=== PATIENT | female | born 1960 | race Caucasian/White ===

== ENCOUNTER 2020-05-30 10:43 | Observation (INO) | payer OTHER, SELFPAY ==
[2020-05-30] VITALS (11 sets, daily range): BP systolic 109–137; BP diastolic 68–88; PULSE 96–118; RESP 17–22; TEMP 36.5–36.8; O2SAT 90–100; BMI 31.5; BMI 31.4
--- NOTE | 2020-05-30 10:53 | ECG_ITS ---
APPROVED REPORT Exam: Resting ECG HR:108 bpm ECG Measurements Heart Rate 108 AXES AR 132 P 83 QRSd 70 QRS 68 QT 322 T 49 QTc 431 <Conclusion> Sinus tachycardia Biatrial enlargement Nonspecific ST abnormality Abnormal ECG Electronically signed by : Shekhar Valentino, 06/01/2020 21:17:18
--- NOTE | 2020-05-30 10:57 | HMH.EDGENADL ---
ED Disposition Clinical Impression: COPD exacerbation Respiratory failure with hypoxia Qualifiers: Chronicity: acute Qualified Code(s): J96.01 - Acute respiratory failure with hypoxia Disposition: Admitted as Observation Condition on Discharge: Fair - Critical Care Critical Care Time: Yes Attestation: On 05/30/20, the high probability of a clinically significant, sudden or life threatening deterioration of the following system(s) required my full and direct attention, intervention and personal management. The time I documented below is in addition to time spent performing reported procedures but includes the following listed in this critical care notation. Total Critical Care Time: 40 Vital system(s) involved:: Respiratory Failure My critical care processes included: Assessment & monitoring of V/S, Initial and Re-exams, Data Review/Interpretation, Coordinating Care, Medication Orders and management, Documentation Medical Decision Making - Medical Records Medical records reviewed: Yes: I reviewed the patient's medical records. - Erik Inquiry Pt receiving controlled substance: No Vital Signs: 05/30/20 10:54 05/30/20 10:56 05/30/20 11:00 Temperature 97.7 F Temperature Source Oral Pulse Rate Pulse Rate [Radial] 118 H 96 H 111 H Respiratory Rate 22 Blood Pressure Blood Pressure [Right Arm] 133/88 122/77 122/74 Blood Pressure Mean [Right Arm] 103 92 90 Blood Pressure Source Blood Pressure Source [Right Arm] Automatic Cuff Automatic Cuff Automatic Cuff Blood Pressure Position Blood Pressure Position [Right Arm] Sitting 02 Sat by Pulse Oximetry 90 L 93 L 91 L Oxygen Delivery Method Room Air Room Air Room Air Oxygen Flow Rate (LPM) 05/30/20 12:08 05/30/20 13:00 05/30/20 14:30 Temperature Temperature Source Pulse Rate Pulse Rate [Radial] 107 H 100 H 111 H Respiratory Rate 20 18 Blood Pressure Blood Pressure [Right Arm] 137/72 131/87 109/68 L Blood Pressure Mean [Right Arm] 93 101 81 Blood Pressure Source Blood Pressure Source [Right Arm] Automatic Cuff Automatic Cuff Automatic Cuff Blood Pressure Position Blood Pressure Position [Right Arm] Sitting Sitting 02 Sat by Pulse Oximetry 92 L 93 L 93 L Oxygen Delivery Method Room Air Nasal Cannula Nasal Cannula Oxygen Flow Rate (LPM) 2 2 05/30/20 15:35 05/30/20 15:40 Temperature 98.0 F Temperature Source Oral Pulse Rate 111 H Pulse Rate [Radial] Respiratory Rate 20 Blood Pressure 109/68 L Blood Pressure [Right Arm] Blood Pressure Mean [Right Arm] Blood Pressure Source Automatic Cuff Blood Pressure Source [Right Arm] Blood Pressure Position Sitting Blood Pressure Position [Right Arm] 02 Sat by Pulse Oximetry Oxygen Delivery Method Room Air Nasal Cannula Oxygen Flow Rate (LPM) 2 - Lab Data Lab results reviewed: Yes: I reviewed the patient's lab results. Lab Results 05/30/20 11:03: Specimen Source Right brachial, O2 % room air, ABG pH 7.37, ABG pCO2 33.7 L, ABG pO2 62.3 L, ABG HCO3 19.0 L, ABG Total CO2 20.1 L, ABG O2 Saturation 92, ABG Base Excess -6.2 L, Marcus Test Non applicable 05/30/20 11:12: WBC 9.6, RBC 4.89, Hgb 14.9, Hct 44.0, MCV 89.9, MCH 30.5, MCHC 33.9, RDW 14.3, Plt Count 375, MPV 7.2 L, Neut % (Auto) 63.3, Lymph % (Auto) 21.8, [place] % (Auto) 5.1, Eos % (Auto) 8.4, Baso % (Auto) 1.2, Neut # (Auto) 6.1, Lymph # (Auto) 2.1, [place] # (Auto) 0.5, Eos # (Auto) 0.8 H, Baso # (Auto) 0.1 05/30/20 11:12: Sodium 139, Potassium 4.5, Chloride 102, Carbon Dioxide 25, Anion Gap 16.5 H, BUN 17, Creatinine 0.90, Estimated Creat Clear 79, Estimated GFR 64, Est GFR ( Amer) 77, Glucose 112 H, Calcium 10.0, Total Bilirubin 0.5, AST 40 H, ALT 31, Alkaline Phosphatase 91, NT-Pro-B Natriuret Pep 48.9, Total Protein 8.3 H, Albumin 4.4, Globulin 3.9 H, Albumin/Globulin Ratio 1.1 05/30/20 11:12: SARS-CoV-2 IgG Ab (Rapid) Negative, SARS-CoV-2 IgM Ab (Rapid) Negative Result diagrams: 05/30/20 11:12
--- NOTE | 2020-05-30 11:01 | XR_ITS ---
PROCEDURE: XR CHEST 2V CLINICAL HISTORY: shortness of breath COMPARISON: No exams were available for comparison FINDINGS: No acute bony abnormalities. The cardiomediastinal silhouette and pulmonary vascularity are within normal limits. The lungs are hyperinflated, compatible with COPD. There is no demonstrated consolidation, acute vascular congestion or pleural effusion of the visualized lungs. IMPRESSION: 1. No acute findings. 2. Possible COPD. Dictated by: Radha Mcgill 05/30/2020 12:14 Electronically signed by Radha Mcgill in [place] 05/30/2020 12:14
[2020-05-30 11:25] LABS: Basophils # 0.1 K/mm3 (0-0.2); Basophils % 1.2 % (0.1-2.0); Eosinophils # 0.8 K/mm3 (0.0-0.4); Eosinophils % 8.4 % (0.1-12.0); Hemoglobin 14.9 g/dL (12.2-16.2); Lymphocytes # 2.1 K/mm3 (0.7-4.5); Lymphocytes % 21.8 % (10-50); Mean Corpuscular HGB Conc 33.9 g/dL (31.8-35.4); Mean Corpuscular Hemoglobin 30.5 pg (27.0-31.2); Mean Corpuscular Volume 89.9 fl (81-99); Mean Platelet Volume 7.2 fl (7.4-10.4); Monocytes # 0.5 K/mm3 (0.1-1.0); Monocytes % 5.1 % (1.7-9.3); Neutrophils # 6.1 K/mm3 (1.8-7.8); Neutrophils % 63.3 % (37.0-80.0); Platelet Count 375 K/mm3 (142-424); Red Blood Count 4.89 M/mm3 (4.20-5.40); Red Cell Distribution Width 14.3 % (11.5-17.5); White Blood Count 9.6 K/mm3 (4.8-10.8)
[2020-05-30 11:26] LABS: Chloride 102 mmol/L (98-107)
[2020-05-30 11:27] LABS: Potassium 4.5 mmoL/L (3.5-5.1); Sodium 139 mmol/L (136-145)
[2020-05-30 11:29] LABS: Alanine Aminotransferase 31 U/L (12-78); Alkaline Phosphatase 91 U/L (38-126); Aspartate Amino Transferase 40 U/L (14-36); Bilirubin,Total 0.5 mg/dl (0.2-1.3); Blood Urea Nitrogen 17 mg/dl (7-17); Creatinine Clearance Estimated 79 mL/min (50-200); Estimated Glomerular Filt Rate 64 ml/min (>60); GFR (African American) 77 ML/MIN (>60)
[2020-05-30 11:30] LABS: Albumin Level 4.4 g/dl (3.5-5.0); Albumin/Globulin Ratio 1.1 (1.1-1.8); Anion Gap 16.5 mEq/L (5-15); Carbon Dioxide 25 mmol/L (22.0-30.0); Globulin 3.9 g/dL (1.3-3.2); Glucose 112 mg/dl (74-100); Total Protein,Serum 8.3 g/dl (6.3-8.2)
[2020-05-30 11:39] LABS: NT Pro Brain Natriuretic Pep. 48.9 pg/mL (0-125)
[2020-05-30 11:41] LABS: ABG Base Excess -6.2 mmol/L (-2.4-2.3); ABG Oxygen Saturation 92 % (90-100); ABG PCO2 33.7 mmhg (35.0-45.0); ABG PH 7.37 mmol/L (7.35-7.45); ABG PO2 62.3 mmhg (80-100); ABG TCO2 20.1 mmhg (23-27)
[2020-05-30 11:43] LABS: Oxygen room air %
[2020-05-30 11:44] LABS: Allen's Test Non Applicable; Source Right Brachial
--- NOTE | 2020-05-30 14:13 | PC.NURSE ---
Dr. Allred paged again. Returned call stating he is in a patient's room and will return phone call shortly.
--- NOTE | 2020-05-30 14:24 | PC.NURSE ---
Dr. Ramsey speaking with Dr. Allred.
[2020-05-30 14:33] LABS: Coronavirus 19 IgG Antibody Negative (Negative); Coronavirus 19 IgM Antibody Negative (Negative)
--- NOTE | 2020-05-30 14:54 | PC.NURSE ---
Report called to CARMELO Dong.
--- NOTE | 2020-05-30 18:54 | HMH.HP ---
*Admission Date: 05/30/20 *Chief complaint: dyspnea *History of present illness: States she has had shortness of breath for 3 or 4 days. She is wheezing. She is a former smoker and has COPD. She says that she is supposed to be on her Brio, but ran out. She does have an albuterol rescue inhaler and a nebulizer with albuterol treatments. Last nebulizer treatment 5 hours ago. Denies fever. Cough is only producing small amounts of white sputum. Current symptoms feel like previous exacerbations of COPD. No known exposures to illnesses including COVID-19. She says her primary care doctor used to be [facility] in [place], and she says she tried to get in there, but they told her to go to an urgent treatment center or the emergency room. She was last there a couple of months ago, but currently tells me she does not have a primary care doctor. Noted dyspnea and desaturations to mid 80's last night with HR 130's on exertion. CXR negative. [facility] History Medical History: Reports:: MRSA Denies:: Cancer, Diabetes Mellitus Type 1, Diabetes Mellitus Type 2 *Have you ever received a pneumonia vaccine?: Yes *Have you received a flu vaccine this season?: No Other Surgeries: Yes: , Hysterectomy-Total Amputation: No Fractures: No - *Social History Last grade of school completed: 11th or 12th Smoking Status: Former smoker # Packs/Day (cigarettes): 1 Alcohol Intake: never *Occupational Status:: employed Housing: house Household Members: spouse *Travel in the last 8 weeks: None Family Hx:: Cancer, Coronary Artery Disease, Diabetes, Heart Attack, Hyperlipidemia, Hypertension Review of Systems - Constitutional Reports fatigue, Reports lack of energy, Denies chills - Eyes Denies blurry vision, Denies change in vision - ENT Denies abnormal hearing, Denies headache(s), Denies sinus pressure, Denies sore throat, Denies throat swelling - *Cardiovascular Reports shortness of breath, Reports shortness of breath with activity, Reports fast heart rate, Denies chest pain, Denies chest pain at rest, Denies chest pain with activity, Denies leg pain with activity, Denies irregular heart rhythm - *Respiratory Reports shortness of breath, Reports shortness of breath with activity, Reports wheezing, Denies change in phlegm color, Denies chest congestion, Denies cough, Denies coughing up blood - *Gastrointestinal Denies abdominal pain, Denies change in stools, Denies heartburn, Denies bright, red blood in stools, Denies black, tarry stools - *Genitourinary Denies painful urination, Denies blood in urine - *Musculoskeletal Denies abnormal walking, Denies joint pain, Denies joint swelling, Denies limited joint movement, Denies muscle weakness - Integumentary/Breasts Denies bleeding lesions, Denies yellowing of the skin - *Neurologic Reports weakness, Denies abnormal walking, Denies abnormal speech, Denies behavioral changes, Denies seizure-like activity, Denies dizziness, Denies headache(s), Denies fainting, Denies tingling, Denies tremor(s) - Psychiatric Denies lack of enjoyment, Denies anxiety, Denies behavioral changes, Denies depression - Endocrine Denies cold intolerance, Denies increased hunger, Denies increased urination - Hematologic/Lymphatic Denies easy bleeding - Allergic/Immunologic Reports wheezing Meds Home Medications Medication Instructions Recorded Confirmed Type Fluticasone/Vilanterol [Breo 1 puff IH DAILY 05/30/20 05/30/20 History Ellipta 100-25 Mcg INH] Allergies Allergy/AdvReac Type Severity Reaction Status Date / Time No Known Allergies Allergy Unverified 10/18/17 14:30 Exam Vital signs and Labs for Last 24 Hours: Temp Pulse Resp BP Pulse Ox 97.8 F 111 H 20 130/73 98 05/30/20 15:41 05/30/20 15:41 05/30/20 15:41 05/30/20 15:41 05/30/20 17:44 Laboratory Results - last 24 hr 05/30/20 11:03: Specimen Source Right brachial, O2 % room air, ABG pH 7.37, ABG pCO2 33.7
--- NOTE | 2020-05-30 19:10 | PC.NURSE ---
report given to taty
--- NOTE | 2020-05-30 21:18 | PC.NURSE ---
Pt's room air sat at rest = 88%.
[2020-05-31] VITALS (9 sets, daily range): BP systolic 110–125; BP diastolic 64–65; PULSE 80–101; RESP 16–20; TEMP 36.6–36.8; O2SAT 89–95; BMI 31.3
--- NOTE | 2020-05-31 03:28 | PC.NURSE ---
A&OX4. PT HAS HAD NO C/O PAIN, NA/VO, OR SOA THIS SHIFT. PT HAS REMAINED ON 2LNC THIS SHIFT. PT HAS BEEN RESTING IN BED WITH EYES CLOSED MAJORITY OF SHIFT. PT C/O HEARTBURN, TX WITH PROTONIX PER MD MAXWELL. ON REASSESSMENT, PT RESTING IN BED WITH EYES CLOSED. NO OTHER C/O THUS FAR, VSS WILL CONTINUE TO MONITOR.
--- NOTE | 2020-05-31 10:41 | HMH.ACPN2 ---
Internal Medicine - PN: Subj *Date: 05/31/20 *Time: 10:41 Interval history: An uneventful night. She relays that her wheezing is less noticeable, however she gets short of breath with limited activity. Cough is nonproductive,secretions are clear. Exam Vital signs and Labs for Last 24 Hours: Temp Pulse Resp BP Pulse Ox 98.0 F 95 H 18 120/64 92 L 05/31/20 07:42 05/31/20 07:42 05/31/20 07:42 05/31/20 07:42 05/31/20 07:42 Laboratory Results - last 24 hr 05/30/20 11:03: Specimen Source Right brachial, O2 % room air, ABG pH 7.37, ABG pCO2 33.7 L, ABG pO2 62.3 L, ABG HCO3 19.0 L, ABG Total CO2 20.1 L, ABG O2 Saturation 92, ABG Base Excess -6.2 L, Marcus Test Non applicable 05/30/20 11:12: WBC 9.6, RBC 4.89, Hgb 14.9, Hct 44.0, MCV 89.9, MCH 30.5, MCHC 33.9, RDW 14.3, Plt Count 375, MPV 7.2 L, Neut % (Auto) 63.3, Lymph % (Auto) 21.8, [place] % (Auto) 5.1, Eos % (Auto) 8.4, Baso % (Auto) 1.2, Neut # (Auto) 6.1, Lymph # (Auto) 2.1, [place] # (Auto) 0.5, Eos # (Auto) 0.8 H, Baso # (Auto) 0.1 05/30/20 11:12: Sodium 139, Potassium 4.5, Chloride 102, Carbon Dioxide 25, Anion Gap 16.5 H, BUN 17, Creatinine 0.90, Estimated Creat Clear 79, Estimated GFR 64, Est GFR ( Amer) 77, Glucose 112 H, Calcium 10.0, Total Bilirubin 0.5, AST 40 H, ALT 31, Alkaline Phosphatase 91, NT-Pro-B Natriuret Pep 48.9, Total Protein 8.3 H, Albumin 4.4, Globulin 3.9 H, Albumin/Globulin Ratio 1.1 05/30/20 11:12: SARS-CoV-2 IgG Ab (Rapid) Negative, SARS-CoV-2 IgM Ab (Rapid) Negative I & O for Last 24 hours: Intake & Output 05/28/20 05/29/20 05/30/20 05/31/20 23:59 23:59 23:59 23:59 Intake Total 360 / 360 360 / 360 Output Total 350 / 350 Balance 360 / 360 Weight 166 lb 1 oz 166 lb 1.011 oz - Constitutional no acute distress - *Routine HEENT Exam Head: Present: normocephalic, atraumatic. Absent: cushingoid faces Eye: Absent: conjunctival icterus, periorbital ecchymosis ENT: Present: mucous membranes moist - *Routine Neck Exam Present: supple, full ROM. Absent: JVD - *Routine Respiratory Exam Present: decreased breath sounds, wheezes. Absent: accessory muscle use, respiratory distress - *Routine Cardiovascular Exam Present: RRR, Normal S1, Normal S2. Absent: murmur, tachycardia, irregular rhythm - *Routine Abdominal Exam Present: soft - *Routine Extremities Exam Present: pulses intact. Absent: cyanosis, clubbing, edema, calf tenderness, palpable cord, tenderness, pallor, extremity cold to touch - *Routine Skin Exam Present: intact. Absent: cyanosis, jaundice - *Routine Neurological Exam Present: alert, oriented X3, moving all extremities - Routine Psychiatric Exam Present: normal affect, cooperative Assessment and Plan (1) COPD exacerbation Current visit: Yes Status: Acute Category: Medical Code(s): J44.1 - Chronic obstructive pulmonary disease with (acute) exacerbation (2) Respiratory failure with hypoxia Current visit: Yes Status: Acute Qualifiers: Chronicity: acute Qualified Code(s): J96.01 - Acute respiratory failure with hypoxia Category: Medical Code(s): J96.91 - Respiratory failure, unspecified with hypoxia - Assessment and plan all Dx Assessment and Plan for all problems:: will continue bronchodilation up-titrate solumedrol to 125 q 8
--- NOTE | 2020-05-31 11:14 | HMH.PHAVTE ---
[facility] Pharmacy VTE Monitoring - Patient Demographics Admission date: 05/30/20 Report Date: 05/31/20 Time: 11:14 Allergies/Adverse Reactions: Patient Allergies No Known Allergies Allergy (Unverified 10/18/17 14:30) Height: 1.55 m Weight: 75.325 kg Patient Problems: Current Active Problems COPD exacerbation (Acute) Respiratory failure with hypoxia (Acute) - VTE Risk Labs: VTE Related Lab Results Hgb 14.9 g/dL (12.2-16.2) 05/30/20 11:12 Hct 44.0 % (37.0-47.0) 05/30/20 11:12 Plt Count 375 K/mm3 (142-424) 05/30/20 11:12 BUN 17 mg/dl (7-17) 05/30/20 11:12 Creatinine 0.90 mg/dl (0.52-1.04) 05/30/20 11:12 Estimated Creat Clear 79 mL/min (50-200) 05/30/20 11:12 Was VTE Risk Assessment Performed: Yes VTE Score: 3 VTE Risk Level: Low Risk - Prophylaxis VTE Prophylaxis Ordered?: Yes Types of VTE Prophylaxis: TEDS Knee High Location of Applied Device: Bilateral Lower Extremeties - VTE Diagnosis Confirmed Treatment or plan recommended: Continue Current Treatment
--- NOTE | 2020-05-31 11:15 | HMH.PHAINT ---
MEDICATION RECONCILIATION COMPLETED ON PATIENT USING EXTERNAL FILL HISTORY FROM PHARMACY. -BRANDEN MORAN, LALOD
--- NOTE | 2020-05-31 18:29 | PC.NURSE ---
Pt alert and oriented and able to make needs known. RR even and unlabored at this time. Pt states when she ambulates she gets soa, but it improves at rest. CB in reach. No complaints at this time. Pt states she had a coughing spell earlier and just coughed up some phlegm.No more noted currently. Have encouraged po fluids to thin secretions. Mx continues. Have also educated on use of IS. Pt verbs understanding. Teds in place.
--- NOTE | 2020-06-01 02:46 | PC.NURSE ---
A&OX4. PT HAS BEEN WEANED OFF OF O2 AT THIS TIME, SHE HAS TOLERATED RA WELL SINCE 2199. RA IN MID 90S AT THIS TIME. PT HAS NOT HAD ANY PROBLEMS WITH COUGHING OR C/O SOA THUS FAR THIS SHIFT. PT USING INCENTIVE SPIROMETER WELL. PT UP INDEPENDENTLY IN ROOM. PT HAS HAD NO C/O THUS FAR, VSS WILL CONTINUE TO MONITOR.
[2020-06-01 04:23] VITALS: BP 118/63; PULSE 88; RESP 16; TEMP 36.6; O2SAT 90
[2020-06-01 05:00] VITALS: BMI 31.0
[2020-06-01 06:22] VITALS: PULSE 66; PULSE 82
[2020-06-01 07:34] VITALS: BP 112/70; PULSE 86; RESP 19; TEMP 36.7; O2SAT 90
[2020-06-01 07:42] LABS: Basophils % 0.1 % (0.1-2.0); Eosinophils # 0.1 K/mm3 (0.0-0.4); Eosinophils % 0.3 % (0.1-12.0); Hematocrit 42.8 % (37.0-47.0); Hemoglobin 14.3 g/dL (12.2-16.2); Lymphocytes % 4.4 % (10-50); Mean Corpuscular HGB Conc 33.4 g/dL (31.8-35.4); Mean Corpuscular Hemoglobin 30.3 pg (27.0-31.2); Mean Corpuscular Volume 90.6 fl (81-99); Mean Platelet Volume 7.7 fl (7.4-10.4); Monocytes # 0.6 K/mm3 (0.1-1.0); Monocytes % 2.4 % (1.7-9.3); Neutrophils # 21.2 K/mm3 (1.8-7.8); Neutrophils % 92.8 % (37.0-80.0); Platelet Count 407 K/mm3 (142-424); Red Blood Count 4.72 M/mm3 (4.20-5.40); Red Cell Distribution Width 14.5 % (11.5-17.5); White Blood Count 22.9 K/mm3 (4.8-10.8)
[2020-06-01 07:45] LABS: Chloride 104 mmol/L (98-107); Potassium 4.3 mmoL/L (3.5-5.1); Sodium 138 mmol/L (136-145)
[2020-06-01 07:48] LABS: Alanine Aminotransferase 41 U/L (12-78); Albumin Level 4.2 g/dl (3.5-5.0); Albumin/Globulin Ratio 1.2 (1.1-1.8); Alkaline Phosphatase 83 U/L (38-126); Anion Gap 16.3 mEq/L (5-15); Aspartate Amino Transferase 38 U/L (14-36); Bilirubin,Total 0.3 mg/dl (0.2-1.3); Blood Urea Nitrogen 28 mg/dl (7-17); Carbon Dioxide 22 mmol/L (22.0-30.0); Creatinine Clearance Estimated 88 mL/min (50-200); Estimated Glomerular Filt Rate 73 ml/min (>60); GFR (African American) 89 ML/MIN (>60); Globulin 3.4 g/dL (1.3-3.2); Total Protein,Serum 7.6 g/dl (6.3-8.2)
[2020-06-01 07:49] LABS: Glucose 169 mg/dl (74-100); MANUAL DIFFERENTIAL MANUAL DIFFERENTIAL (MANUAL DIFF)
[2020-06-01 08:13] LABS: Lymphocytes % 6 % (10-50); Monocytes % 1 % (2-9); Neutrophils % 93 % (42-76); Platelet Estimate Normal; RBC Morphology Normal; Total Cells Counted 100
[2020-06-01 10:55] VITALS: PULSE 68; PULSE 75
--- NOTE | 2020-06-01 13:24 | HMH.DCSUM ---
General - General Admission date:: 05/30/20 Discharge date: 06/01/20 HPI HPI: States she has had shortness of breath for 3 or 4 days. She is wheezing. She is a former smoker and has COPD. She says that she is supposed to be on her Brio, but ran out. She does have an albuterol rescue inhaler and a nebulizer with albuterol treatments. Last nebulizer treatment 5 hours ago. Denies fever. Cough is only producing small amounts of white sputum. Current symptoms feel like previous exacerbations of COPD. No known exposures to illnesses including COVID-19. She says her primary care doctor used to be [facility] in [place], and she says she tried to get in there, but they told her to go to an urgent treatment center or the emergency room. She was last there a couple of months ago, but currently tells me she does not have a primary care doctor. Noted dyspnea and desaturations to mid 80's last night with HR 130's on exertion. CXR negative. Hospital Course Hospital Course: On 05/30/2020 for increasing COPD symptoms. [place] dyspnea on exertion and desaturations. He was placed on IV Solu-Medrol, got aggressive bronchodilation per nebulizer, and was given IV Rocephin and azithromycin. Made steady continuous improvement. Chest x-ray was negative. There was no purulent sputum. On the day of her discharge she had much less wheezing, was much more comfortable. She did have an elevated white count at 22.9, this was felt to be due to the IV prednisone. Peripheral demargination. Patient should be established with a primary physician, and we would be happy to see her upon discharge. Spent some time discussing the importance of control and mitigation of exacerbation symptoms. Objective Vital signs: Temp Pulse Resp BP Pulse Ox 98.1 F 75 19 112/70 90 L 06/01/20 07:34 06/01/20 10:55 06/01/20 07:34 06/01/20 07:34 06/01/20 07:34 no acute distress - *Routine HEENT Exam Head: Present: normocephalic Eye: Present: EOMI, PERRL ENT: Present: mucous membranes moist - *Routine Neck Exam Present: supple - *Routine Respiratory Exam Present: wheezes. Absent: accessory muscle use, rales, respiratory distress, rhonchi, stridor, crackles, distant breath sounds, diminished air movement Comments: Wheezes are subtle, and expiration, and are markedly improved from admission. - *Routine Cardiovascular Exam Present: RRR - *Routine Abdominal Exam Present: soft, normoactive bowel sounds. Absent: tenderness - *Routine Extremities Exam Absent: cyanosis, clubbing, edema - *Routine Skin Exam Present: warm. Absent: rash - *Routine Neurological Exam Present: alert, oriented X3. Absent: altered mental status - Routine Psychiatric Exam Present: normal affect, normal thought process, cooperative, good insight, good judgment Results Labs on day of discharge: Labs from last 24 hours 06/01/20 06/01/20 07:25 07:25 WBC 22.9 H* D RBC 4.72 Hgb 14.3 Hct 42.8 MCV 90.6 MCH 30.3 MCHC 33.4 RDW 14.5 Plt Count 407 MPV 7.7 Neut % (Auto) 92.8 H Lymph % (Auto) 4.4 L [place] % (Auto) 2.4 Eos % (Auto) 0.3 Baso % (Auto) 0.1 Neut # (Auto) 21.2 H Lymph # (Auto) 1.0 [place] # (Auto) 0.6 Eos # (Auto) 0.1 Baso # (Auto) 0.0 Total Counted 100 Neutrophils % (Manual) 93 H Lymphocytes % (Manual) 6 L Monocytes % (Manual) 1 L Platelet Estimate Normal RBC Morphology Normal Sodium 138 Potassium 4.3 Chloride 104 Carbon Dioxide 22 Anion Gap 16.3 H BUN 28 H D Creatinine 0.80 Estimated Creat Clear 88 Estimated GFR 73 Est GFR ( Amer) 89 Glucose 169 H Calcium 10.0 Total Bilirubin 0.3 AST 38 H ALT 41 D Alkaline Phosphatase 83 Total Protein 7.6 Albumin 4.2 Globulin 3.4 H Albumin/Globulin Ratio 1.2 DS: Diagnosis - Discharge Diagnosis (1) COPD exacerbation Status: Acute (2) Respiratory failure with hypoxia
== END 2020-06-01 15:45 | disposition home or self-care (01) ==
LOC: ER 13:44 → 2ND 15:34
PROVIDERS: Admitting Provider Family Medicine; Emergency Provider Emergency Medicine; Visit Provider Family Medicine
DX: J96.01 Acute respiratory failure with hypoxia (principal); J44.1 Chronic obstructive pulmonary disease with (acute) exacerbation; Z87.891 Personal history of nicotine dependence; Z79.899 Other long term (current) drug therapy
CPT/HCPCS: 36415; 71046; 80053; 82803; 83880; 85007; 85025; 86328; 93005; 94640; 94761; 96374; 96375; 99285; G0378

== ENCOUNTER 2022-04-05 14:14 | Emergency (ER) | payer OTHER, SELFPAY ==
[2022-04-05 14:20] VITALS: BP 111/70; PULSE 87; RESP 18; TEMP 36.6; O2SAT 97; BMI 26.1
--- NOTE | 2022-04-05 15:02 | HMH.EDUTC ---
[facility] Disposition Clinical Impression: URI (upper respiratory infection) Qualifiers: URI type: unspecified URI Qualified Code(s): J06.9 - Acute upper respiratory infection, unspecified Disposition: Home, Self-Care Condition on Discharge: Good Instructions: DI for Sinusitis, DI for Fever (Symptom) -- Adult, Sore Throat, Cough Additional Instructions: ? Start antibiotic today. Be sure to complete entire prescription even if feeling better ? Monitor temp. Tylenol every 4 hours as needed and / or ibuprofen every 6 hours as needed ( As long as your primary care physician has told you that it ok to take both. For fever/aches/pains ER if no less than 101 despite Tylenol or Motrin ? Humidifier/vaporizer or hot steamy shower ? Inhaler every 4-6 hours as needed like we discussed. If unsure how to use it, ask pharmacist to demonstrate how. Should help open airways and improve cough, wheezing, and shortness of breath *Tessalon Perles will not cause drowsiness but use at bedtime to help stop cough so that you may get some rest. *Start steroid today. Helps with inflammation therefore, cough and wheezing. Follow directions on the package. Reviewed side effects. Patient reports taking them before. Follow up IMMEDIATELY for new or worsening of symptoms OR no noticeable improvement over the next 48-72 hours. 911 immediately for any life threatening symptoms such as chest pain or difficulty breathing You was tested for Upper Respiratory Panel with COVID today it should be back in the next 24-48 hours The results will be available on the [facility] My Health Portal Prescriptions: Benzonatate [Benzonatate 100mg cap] 100 mg PO Q8HP PRN #15 cap PRN Reason: Cough Transmission Status: Pending to [id number] predniSONE [Prednisone 20mg Tab] 20 mg PO BID 5 Days #10 tab Transmission Status: Pending to [facility] Azithromycin [Z-Dawson 250mg Tab] 250 mg PO DIRECTED #6 tab Transmission Status: Pending to [facility] Referrals: Davis Allred MD [Primary Care Provider] - As needed Forms: Work/School Release Time of Disposition: 15:11 Medical Decision Making - Erik Inquiry Pt receiving controlled substance: No Erik was queried for this patient: No Vital Signs: 04/05/22 14:20 Temperature 97.9 F Temperature Source Oral Pulse Rate [Right Brachial] 87 Respiratory Rate 18 Blood Pressure [Right Arm] 111/70 Blood Pressure Mean [Right Arm] 83 Blood Pressure Source [Right Arm] Automatic Cuff Blood Pressure Position [Right Arm] Sitting 02 Sat by Pulse Oximetry 97 Oxygen Delivery Method Room Air Medical Decision Narrative: Patient states that she has taken azithromycin and Prednisone in the past without complications or reactions [facility] HPI - General Stated complaint: fever, body aches, chills Time Seen by Provider: 04/05/22 15:02 Mode of Arrival: Ambulatory Source of Information: Patient Limitations: No Limitations Description of Symptoms (Recalled from Triage Doc. by RN): PATIENT C/O FEVER, BODY ACHES, CHILLS, VOMITING, COUGH, RIGHT LUNG PAIN, SOA, AND DECREASED APPETITE SINCE TUESDAY HEENT Symptoms (Recalled from RN notes): No Resp Symptoms (Recalled from RN notes): Yes Skin Symptoms (Recalled from RN notes): No MS Symptoms (Recalled from RN notes): No Functional Status (Recalled from RN notes): WNL - History of Present Illness Provider Complaint: Patient state that she started feeling bad on State that she has been sick since States that she has been having fever, chills, body aches, sinus congestion and pressure cough, N/V and fatigue State that she has COPD but not having any shortness of breath so she doesnt think it is that flaring up State that she was worried with COVID States that she took test on Tuesday and it was negative but today she was feeling worse with sinus pressure and cough - Related Data Home Medications Medication Instructions Recorded Confirmed Fluticasone/Vilanterol [Jose G
[2022-04-05 15:14] VITALS: BP 111/70; PULSE 87; RESP 18; TEMP 36.6; O2SAT 97
[2022-04-05 16:11] LABS: Adenovirus,PCR Not Detected (NotDetected); Bordetella Pertussis Not Detected (NotDetected); Chlamydophila Pneumoniae, PCR Not Detected (NotDetected); Coronavirus 19, PCR Not Detected (NotDetected); Coronavirus 229E Not Detected (NotDetected); Coronavirus NL63 Not Detected (NotDetected); Coronavirus OC43 Not Detected (NotDetected); Coronovirus HKU1,PCR Not Detected (NotDetected); Human Metapneumovirus Not Detected (NotDetected); Influenza A, PCR Not Detected (NotDetected); Influenza AH1, 2009 Not Detected (NotDetected); Influenza AH1, PCR Not Detected (NotDetected); Influenza AH3,PCR Not Detected (NotDetected); Influenza B, PCR Not Detected (NotDetected); Mycoplasma Pneumoniae, PCR Not Detected (NotDetected); Parainfluenza 1, PCR Not Detected (NotDetected); Parainfluenza 2, PCR Not Detected (NotDetected); Parainfluenza 3, PCR Not Detected (NotDetected); Parainfluenza 4, PCR Not Detected (NotDetected); Respiratory Syncytial Virus Not Detected (NotDetected); Rhinovirus/Enterovirus Not Detected (NotDetected)
== END 2022-04-05 15:20 | disposition home or self-care (01) ==
PROVIDERS: Emergency Provider Nurse Practitioner; PCP Family Medicine
DX: J06.9 Acute upper respiratory infection, unspecified (principal)
CPT/HCPCS: 87581; 87632; 87798; 99212; C9803; G0463; U0003; U0005

== ENCOUNTER 2022-09-27 08:50 | Emergency (ER) | payer OTHER, SELFPAY ==
--- NOTE | 2022-09-27 10:03 | EXP.UTC ---
Discharge Plan Disposition Patient Disposition: Home, Self-Care Condition: Good Prescriptions Prescriptions: New benzonatate [benzonatate] 100 mg capsule 100 mg PO TIDP PRN (Reason: Cough) Qty: 30 0RF amoxicillin-pot clavulanate 875-125 mg Tablet 1 tab PO Q12H Qty: 20 0RF prednisone 10 mg tablet 10 mg PO DIRECTED 9 Days Qty: 21 0RF Rx Instructions: Take 4 tablets daily for 3 days, then take 2 tablets daily for 3 days, then take 1 tablet daily for 3 days, then stop. promethazine-DM 6.25-15 mg/5 mL Syrup 5 ml PO Q6H PRN (Reason: Cough) Qty: 240 0RF fluticasone furoate-vilanterol [Breo Ellipta] 200-25 mcg/dose blister with device 1 inh inhalation DAILY 30 Days Qty: 60 5RF No Action budesonide-formoterol [Symbicort] 160-4.5 mcg/actuation HFA aerosol inhaler 1 inh inhalation BID Qty: 10.2 2RF albuterol sulfate 90 mcg/actuation HFA aerosol inhaler 2 puff inhalation Q4-6H PRN (Reason: shortness of breath or wheezing) Qty: 8.5 2RF azithromycin 250 MG tablet 250 mg PO DIRECTED Qty: 6 0RF Rx Instructions: Take two (2) tablets on day #1, then one (1) tablet day #2 thru #5 prednisone 20 MG tablet 20 mg PO BID 5 Days Qty: 10 0RF benzonatate 100 MG capsule 100 mg PO Q8HP PRN (Reason: Cough) Qty: 15 0RF Referrals Follow up/Referrals: Davis Allred MD [Primary Care Provider] - See instructions Activity Restrictions/Add. Instructions Additional Instructions/Restrictions: Drink plenty of fluids. Take tylenol or ibuprofen for pain or fever. Take the medications as directed. Follow up with your regular doctor. GO TO THE ER FOR ANY WORSENING SYMPTOMS Don't start the oral steroids until tomorrow, since you had the shot here today. The cough medication (promethazine dm) will make you drowsy, so don't drive or operate heavy machinery after taking it. Clinical Impressions Clinical Impression: COPD exacerbation Stand Alone Forms Stand Alone Forms: Work/School Release Instructions Patient Instructions: COPD: When to Call for Help Discharge ED Provider: [facility] HPI General Stated complaint: copd flare up Time Seen by Provider: 09/27/22 10:03 History of Present Illness Provider Complaint: She states that for the past 1 week she has had a worsening chest and sinus congestion. She denies fever. Related Data Previous Rx's Medication Instructions Recorded azithromycin 250 mg tablet 250 mg PO DIRECTED #6 tabs 04/05/22 benzonatate 100 mg capsule 100 mg PO Q8HP PRN Cough #15 caps 04/05/22 prednisone 20 mg tablet 20 mg PO BID 5 days #10 tabs 04/05/22 budesonide-formoterol HFA 160 1 inh inhalation BID #10.2 grams 08/06/22 mcg-4.5 mcg/actuation aerosol inhaler (Symbicort) albuterol sulfate 90 mcg/actuation 2 puff inhalation Q4-6H PRN 09/13/22 aerosol inhaler shortness of breath or wheezing #8.5 grams amoxicillin 875 mg-potassium 1 tab PO Q12H #20 tabs 09/27/22 clavulanate 125 mg tablet benzonatate 100 mg capsule 100 mg PO TIDP PRN Cough #30 caps 09/27/22 fluticasone furoate 200 1 inh inhalation DAILY 30 days #60 09/27/22 mcg-vilanterol 25 mcg/dose ea inhalation powder (Breo Ellipta) prednisone 10 mg tablet 10 mg PO DIRECTED 9 days #21 09/27/22 tabs promethazine-DM 6.25 mg-15 mg/5 mL 5 ml PO Q6H PRN Cough #240 mL 09/27/22 oral syrup Allergies Allergy/AdvReac Type Severity Reaction Status Date / Time No Known Allergies Allergy Verified 09/27/22 10:15 PFSH PFSH Social History Smoking Status: Former smoker alcohol intake: never substance use type: denies use current occupational status: other Travel in the last 8 weeks: None household members: spouse housing: house current occupational exposures/hazards: No caffeine: Yes ROS Obtained: Yes All systems reviewed & no additional complaints except as documented Constitutional C
[2022-09-27 10:12] VITALS: BP 111/64; PULSE 76; RESP 18; TEMP 36.9; O2SAT 96; BMI 28.7
[2022-09-27 10:52] VITALS: BP 111/64; PULSE 76; RESP 18; TEMP 36.9
[2022-09-27 11:08] LABS: Adenovirus,PCR Not Detected (NotDetected); Bordetella Pertussis Not Detected (NotDetected); Chlamydophila Pneumoniae, PCR Not Detected (NotDetected); Coronavirus 19, PCR Not Detected (NotDetected); Coronavirus 229E Not Detected (NotDetected); Coronavirus NL63 Not Detected (NotDetected); Coronavirus OC43 Not Detected (NotDetected); Coronovirus HKU1,PCR Not Detected (NotDetected); Human Metapneumovirus Not Detected (NotDetected); Influenza A, PCR Not Detected (NotDetected); Influenza AH1, 2009 Not Detected (NotDetected); Influenza AH1, PCR Not Detected (NotDetected); Influenza AH3,PCR Not Detected (NotDetected); Influenza B, PCR Not Detected (NotDetected); Mycoplasma Pneumoniae, PCR Not Detected (NotDetected); Parainfluenza 1, PCR Not Detected (NotDetected); Parainfluenza 2, PCR Not Detected (NotDetected); Parainfluenza 3, PCR Not Detected (NotDetected); Parainfluenza 4, PCR Not Detected (NotDetected); Respiratory Syncytial Virus Not Detected (NotDetected); Rhinovirus/Enterovirus Not Detected (NotDetected)
== END 2022-09-27 10:53 | disposition home or self-care (01) ==
PROVIDERS: Emergency Provider Nurse Practitioner Family; PCP Family Medicine
DX: J44.1 Chronic obstructive pulmonary disease with (acute) exacerbation (principal)
CPT/HCPCS: 87581; 87632; 87798; 96372; 99212; C9803; G0463; J0696; U0003; U0005

== ENCOUNTER → 2023-09-21 12:09 | Outpatient (CLI) | payer OTHER, SELFPAY ==
--- NOTE | 2023-09-21 12:12 | XR_ITS ---
FINAL REPORT CLINICAL HISTORY: soa FINDINGS: TWO-VIEW CHEST The heart size is normal. The mediastinum is normal. The lungs are clear. There is no pneumothorax. IMPRESSION: No acute cardiopulmonary process. Reviewed, Interpreted and Dictated by Tony Goldstein III, MD Transcribed by Glenny Martinez Authenticated and [facility]
== END ==
LOC: RAD 12:09
PROVIDERS: PCP Nurse Practitioner Family; Visit Provider Nurse Practitioner Family
DX: R06.02 Shortness of breath (principal)
CPT/HCPCS: 71046

== ENCOUNTER → 2023-09-29 07:01 | Outpatient (CLI) | payer OTHER, SELFPAY ==
[2023-09-29 18:25] LABS: Adenovirus,PCR Not Detected (NotDetected); Coronavirus 19, PCR Not Detected (NotDetected); Coronavirus 229E Not Detected (NotDetected); Coronavirus NL63 Not Detected (NotDetected); Coronavirus OC43 Not Detected (NotDetected); Coronovirus HKU1,PCR Not Detected (NotDetected); Human Metapneumovirus Not Detected (NotDetected); Influenza A, PCR Not Detected (NotDetected); Influenza AH1, 2009 Not Detected (NotDetected); Influenza AH1, PCR Not Detected (NotDetected); Influenza AH3,PCR Not Detected (NotDetected); Influenza B, PCR Not Detected (NotDetected); Parainfluenza 1, PCR Not Detected (NotDetected); Parainfluenza 2, PCR Not Detected (NotDetected); Parainfluenza 3, PCR Not Detected (NotDetected); Parainfluenza 4, PCR Not Detected (NotDetected); Respiratory Syncytial Virus Not Detected (NotDetected); Rhinovirus/Enterovirus Not Detected (NotDetected)
== END ==
LOC: LAB.DROPOF 09-30 07:02
PROVIDERS: PCP Nurse Practitioner Family; Visit Provider Nurse Practitioner Family
DX: R06.02 Shortness of breath (principal); R05.9 Cough, unspecified; R09.81 Nasal congestion
CPT/HCPCS: 87581; 87632; 87635; 87798

== ENCOUNTER → 2023-10-07 10:02 | Outpatient (CLI) | payer OTHER, SELFPAY ==
[2023-10-07 11:00] VITALS: PULSE 92
== END ==
LOC: RT 10:03
PROVIDERS: PCP Nurse Practitioner Family; Visit Provider Nurse Practitioner Family
DX: R06.02 Shortness of breath (principal); J44.89 Other specified chronic obstructive pulmonary disease
CPT/HCPCS: 94060; 94618; 94640; 94726; 94729

== ENCOUNTER 2023-11-10 11:47 | Outpatient (CLI) | payer OTHER, SELFPAY ==
[2023-11-10 12:13] LABS: Basophils # 0.1 K/mm3 (0-0.2); Basophils % 1.1 % (0.1-2.0); Eosinophils # 0.2 K/mm3 (0.0-0.4); Eosinophils % 2.5 % (0.1-12.0); Hematocrit 45.8 % (37.0-47.0); Lymphocytes # 1.9 K/mm3 (0.7-4.5); Lymphocytes % 23.6 % (10-50); Mean Corpuscular HGB Conc 32.8 g/dL (31.8-35.4); Mean Corpuscular Hemoglobin 30.6 pg (27.0-31.2); Mean Corpuscular Volume 93.2 fl (81-99); Monocytes # 0.6 K/mm3 (0.1-1.0); Monocytes % 7.8 % (1.7-9.3); Neutrophils # 5.3 K/mm3 (1.8-7.8); Platelet Count 345 K/mm3 (142-424); Red Blood Count 4.91 M/mm3 (4.20-5.40); Red Cell Distribution Width 14.7 % (11.5-17.5); White Blood Count 8.1 K/mm3 (4.8-10.8)
[2023-11-10 12:31] LABS: Chloride 104 mmol/L (98-107)
[2023-11-10 12:32] LABS: Potassium 5.1 mmoL/L (3.5-5.1); Sodium 138 mmol/L (136-145)
[2023-11-10 12:34] LABS: Alanine Aminotransferase 20 U/L (12-78); Albumin/Globulin Ratio 1.5 (1.1-1.8); Alkaline Phosphatase 68 U/L (38-126); Anion Gap 11.1 mEq/L (5-15); Aspartate Amino Transferase 32 U/L (14-36); Bilirubin,Total 0.6 mg/dl (0.2-1.3); Blood Urea Nitrogen 22 mg/dl (7-17); Carbon Dioxide 28 mmol/L (22.0-30.0); Cholesterol 206 mg/dl (140-200); Estimated Glomerular Filt Rate 63 ml/min (>60); GFR (African American) 77 ML/MIN (>60); Globulin 2.7 g/dL (1.3-3.2); Hemoglobin A1C 5.8 % (4.0-6.0); Total Protein,Serum 6.7 g/dl (6.3-8.2); Triglycerides 37 mg/dl (30-150); VLDL Cholesterol 7 mg/dL (0-40)
[2023-11-10 12:35] LABS: Calcium 9.2 mg/dl (8.4-10.2); Chol/HDL Ratio 2.3 (1-3.5); Glucose 95 mg/dl (74-100); HDL Cholesterol 88 mg/dl (40-60)
[2023-11-10 12:46] LABS: Direct LDL Cholesterol 88.83 mg/dL (100-129)
[2023-11-10 12:57] LABS: 25-OH Vitamin D, Total 27.5 ng/mL (30-100)
[2023-11-10 13:06] LABS: Thyroid Stimulating Hormone 0.48 uIU/mL (0.465-4.68)
== END 2023-11-10 23:59 ==
LOC: LAB.DROPOF 11:47
PROVIDERS: PCP Nurse Practitioner Family; Visit Provider Nurse Practitioner Family
DX: J44.89 Other specified chronic obstructive pulmonary disease (principal); E55.9 Vitamin D deficiency, unspecified; Z68.28 Body mass index [BMI] 28.0-28.9, adult; Z87.891 Personal history of nicotine dependence
CPT/HCPCS: 80053; 80061; 82306; 83036; 84443; 85025

== ENCOUNTER 2023-11-24 15:58 | Outpatient (CLI) | payer OTHER, SELFPAY ==
[2023-11-24 16:49] LABS: Basophils # 0.1 K/mm3 (0-0.2); Basophils % 1.3 % (0.1-2.0); Eosinophils # 0.5 K/mm3 (0.0-0.4); Eosinophils % 4.5 % (0.1-12.0); Hematocrit 42.1 % (37.0-47.0); Hemoglobin 15.3 g/dL (12.2-16.2); Lymphocytes # 2.8 K/mm3 (0.7-4.5); Lymphocytes % 25.6 % (10-50); Mean Corpuscular HGB Conc 36.4 g/dL (31.8-35.4); Mean Corpuscular Hemoglobin 33.5 pg (27.0-31.2); Monocytes # 0.6 K/mm3 (0.1-1.0); Monocytes % 5.8 % (1.7-9.3); Neutrophils # 6.8 K/mm3 (1.8-7.8); Neutrophils % 62.9 % (37.0-80.0); Platelet Count 336 K/mm3 (142-424); Red Blood Count 4.58 M/mm3 (4.20-5.40); Red Cell Distribution Width 14.3 % (11.5-17.5); White Blood Count 10.9 K/mm3 (4.8-10.8)
[2023-11-28 04:05] LABS: D001-IgE D pteronyssinus <0.10 kU/L (Class 0); D002-IgE D farinae <0.10 kU/L (Class 0); E001-IgE Cat Dander <0.10 kU/L (Class 0); E005-IgE Dog Dander <0.10 kU/L (Class 0); E072-IgE Mouse Urine <0.10 kU/L (Class 0); G002-IgE Bermuda Grass <0.10 kU/L (Class 0); G006-IgE Timothy Grass <0.10 kU/L (Class 0); I006-IgE Cockroach, German <0.10 kU/L (Class 0); Immunoglobulin E, Total 197 IU/mL (6-495); M001-IgE Penicillium chrysogen <0.10 kU/L (Class 0); M002-IgE Cladosporium herbarum <0.10 kU/L (Class 0); M003-IgE Aspergillus fumigatus <0.10 kU/L (Class 0); M006-IgE Alternaria alternata <0.10 kU/L (Class 0); T001-IgE Maple/Box Elder <0.10 kU/L (Class 0); T003-IgE Common Silver Birch <0.10 kU/L (Class 0); T006-IgE Cedar, Mountain <0.10 kU/L (Class 0); T007-IgE Oak, White <0.10 kU/L (Class 0); T008-IgE Elm, American <0.10 kU/L (Class 0); T010-IgE Walnut <0.10 kU/L (Class 0); T011-IgE Maple Leaf Sycamore <0.10 kU/L (Class 0); T014-IgE Cottonwood <0.10 kU/L (Class 0); T015-IgE Ash, White <0.10 kU/L (Class 0); T022-IgE Pecan, Hickory <0.10 kU/L (Class 0); T070-IgE White Mulberry <0.10 kU/L (Class 0); W001-IgE Ragweed, Short <0.10 kU/L (Class 0); W011-IgE Thistle, Russian <0.10 kU/L (Class 0); W014-IgE Pigweed, Common <0.10 kU/L (Class 0); W018-IgE Sheep Sorrel <0.10 kU/L (Class 0)
[2023-11-29 13:21] LABS: QuantiFERON-TB Gold Plus Positive (Negative)
== END 2023-11-24 23:59 ==
LOC: LAB 15:58
PROVIDERS: PCP Nurse Practitioner Family; Visit Provider Internal Medicine Pulmonary Disease
DX: J45.909 Unspecified asthma, uncomplicated (principal); J44.89 Other specified chronic obstructive pulmonary disease
CPT/HCPCS: 36415; 82785; 85025; 86003; 86480

== ENCOUNTER 2024-01-25 14:50 | Outpatient (CLI) | payer OTHER, SELFPAY ==
--- NOTE | 2024-01-25 14:50 | CT_ITS ---
FINAL REPORT TECHNIQUE: Axial images were obtained from the lung apex to the mid abdomen by computed tomography. This study was performed with techniques to keep radiation doses as low as reasonably achievable (ALARA). Individualized dose reduction techniques using automated exposure control or adjustment of mA and/or kV according to the patient's size were employed. CLINICAL HISTORY: lung cancer screening current smoker 1ppd x 49 years FINDINGS: CHEST CT LOW DOSE CTDI vol (mGy): 2.90 DLP (mGy-cm): 104.46 There is no axillary adenopathy. There is no hilar or mediastinal adenopathy. The heart is normal in size. There is no pericardial or pleural effusion. Lung window images demonstrate no suspicious infiltrate or nodule. There is linear scar or atelectasis in the inferior right upper lobe. There is a calcified granuloma in the left lower lobe. Limited images of the upper abdomen are unremarkable. IMPRESSION: Lung RADS category 1. Recommend 12 month follow-up low-dose chest CT. Reviewed, Interpreted and Dictated by Shankar Sullivan MD Transcribed by Glenny Martinez Authenticated and . [facility]
== END 2024-01-25 23:59 ==
LOC: RAD 14:50
PROVIDERS: PCP Nurse Practitioner Family; Visit Provider Internal Medicine Pulmonary Disease
DX: F17.210 Nicotine dependence, cigarettes, uncomplicated (principal)
CPT/HCPCS: 71271

== ENCOUNTER 2025-01-28 15:14 | Outpatient (CLI) | payer OTHER, SELFPAY ==
--- NOTE | 2025-01-28 15:30 | CT_ITS ---
FINAL REPORT CLINICAL HISTORY: lung cancer screening former smoker quit 1 year ago, 50 years total hx copd, asthma COMPARISON: 01/25/2024 FINDINGS: CT CHEST LOW DOSE SCREENING HISTORY: Screening exam for lung cancer. Current smoker, 30 pack year smoking history DOSE: CTDIvol: 2.90 mGy, DLP: 90.64 mGy*cm TECHNIQUE: Axial CT without IV contrast administration using low dose protocol. This study was performed with techniques to keep radiation doses as low as reasonably achievable, (ALARA). Individualized dose reduction techniques using automated exposure control or adjustment of mA and/or kV according to the patient's size were employed. FINDINGS: No acute lung disease is present . No pulmonary lesions are seen suspicious for neoplasm. There is mild scarring in the right lung. No pleural or pericardial effusion is seen . No adenopathy or mass lesion is present . IMPRESSION: 1. No suspicious pulmonary nodule. LUNG RADS CATEGORY 1 RECOMMENDATION: 12 month LDCT follow up Reviewed, Interpreted and Dictated by Guerda Hopson MD Transcribed by Janet Evangelista Authenticated and [facility]
== END 2025-01-28 23:59 | disposition home or self-care (01) ==
LOC: RAD 15:14
PROVIDERS: PCP Nurse Practitioner Family; Visit Provider Internal Medicine Pulmonary Disease
DX: Z87.891 Personal history of nicotine dependence (principal)
CPT/HCPCS: 71271

== ENCOUNTER 2025-08-27 07:42 | Outpatient (CLI) | payer OTHER, SELFPAY ==
--- OUTSIDE RECORDS SUMMARY | 2025-08-27 07:44 | XMS_ITS | Clinical Summary ---
Author Organization [facility] Address [address] [place] [address] Care Team Providers Care Acute Care Certified Nursing Assistant Name Role Phone Alondra Leigh APRN Primary Care Provider [phone] Allergies Active Allergy Reactions Criticality Noted Date Comments Albuterol Palpitations Low 05/30/2019 Has done okay with the ventolin brand Medications ipratropium-alb uterol (DUO-NEB) 0.5-2.5 mg/3 ml nebulizer Take 3 mL by nebulization Every 4 (Four) Hours As Needed for Wheezing. Active albuterol sulfate HFA 108 (90 Base) MCG/ACT inhaler 1-2 puffs q 4-6 hours prn for SOB or wheeze 1 inhaler 9 Active Fluticasone Furoate-Vilante rol (BREO ELLIPTA) 100-25 MCG/INH inhalerIndicati ons:Simple chronic bronchitis Inhale 1 puff Daily. 1 inhaler 3 9 Active Trelegy Ellipta 200-62.5-25 MCG/ACT inhaler Inhale 1 puff Daily. 5 Active montelukast (SINGULAIR) 10 MG tablet Take 1 tablet by mouth Daily. 5 Active Active Problems Problem Noted Date Diagnosed Date Simple chronic bronchitis 10/09/2019 Chronic cough 10/09/2019 Other fatigue 10/09/2019 Weight gain 10/09/2019 Vitamin D insufficiency 10/09/2019 Family History Medical History Relation Name Comments Bone cancer Brother No Known Problems Mother Colon cancer Sister Breast cancer Neg Hx Ovarian cancer Neg Hx Relation Name Status Comments Brother Mother Sister Alive Social History Tobacco Use Types Packs/Day Years Used Date Smoking Tobacco: Former Cigarettes 1 43 1 10/31/1975 - 08/31/2019 Smokeless Tobacco: Never Tobacco Cessation:Counseling Given: Not Answered Alcohol Use Standard Drinks/Week Comments No 0 (1 standard drink = 0.6 oz pur e alcohol) AUDIT-C Answer Date Recorded Frequency of Alcohol Consumption Never 10/09/2019 Average Number of Drinks Not on file 019 Frequency of Binge Drinking Never 09/30 PHQ-2 Answer Date Recorded PHQ-2 Score 0 10/09/2019 Abuse Screen Answer Date Recorded Feels Unsafe at Home or Work/School no 04/20/2025 Feels Threatened by Someone no 04/01 Does Anyone Try to Keep You From Having Contact with Others or Doing Things Outside Your Home? no 04/20/2025 Physical Signs of Abuse Present no 04/20/2025 Housing Stability Answer Date Recorded Current Living Arrangements Not on file 07/31 Potentially Unsafe Housing Conditions Not on huong e 08/10/2023 Family and Community Support Answer Armani e Recorded Help with Day-to-Day Activities Not on file 08/10/2023 Lonely or Isolated Not on file 08/10/2023 Employment Answer Date Recorded Do you want help finding or keeping work or a juan pablo b? Not on file 08/10/2023 Disabilities Answer Date Recorded Concentrating, Remembering, or Making Decisions Difficulty Not on file 08/10/2023 Doing Errands Independently Difficulty Not on fi le 08/10/2023 Education Answer Date Recorded Help with school or training? Not on file Preferred Language Not on file 08/10/2023 Comments No Sex and Gender Information Value Date Recorded Sex Assigned at Not on file Legal Sex Female 1:41 PM EST Gender Identity Not on file Sexual Orientation Not on file Last Filed Vital Signs Vital Sign Reading Time Taken Comments Blood Pressure 108/55 04/20/2025 5:28 PM EDT Pulse 60 04/20/2025 5:28 PM EDT Temperature 36.7 C (98 F) 04/20/2025 3:19 PM EDT Respiratory Rate 20 04/20/2025 3:19 PM EDT Oxygen Saturation 95% 04/20/2025 5:28 PM EDT Inhaled Oxygen Concentration - - Weight 85.3 kg (188 lb) 04/20/2025 3:20 PM EDT Height 154.9 cm (5' 1 ) 04/20/2025 3:20 PM EDT Body Mass Index 35.52 04/20/2025 3:20 PM EDT Plan of Treatment Health Maintenance Due Date Last Done Comments DXA SCAN 1960 TDAP/TD VACCINES (1 - Tdap) 1979 COLOGUARD 2005 COLON CANCER SCREENING 5 YEA R SIGMOIDOSCOPY 2005 [address] COLONOGRAPHY 2005 FECAL OCCULT BLOOD TEST 2005 FIT Testing (1 year) 2005 ZOSTER VACCINE (2 of 2) 10/04/2020 08/09/2020 ANNUAL PHYSICAL 11/06/2020 11/06/2019 Pneumococcal Vaccine 50+ (2 of 2 - PCV20 or PCV21) 08/09/2021 08/09/2020 MAMMOGRAM 11/15/2021 11/15/2019 INFLUENZA VACCINE 05/31/2025 08/31/2019 COVID-19 Vaccine (3 - season) 2025, 10/29/2020 COLONOSCOPY 11/23/2029 11/23/2019, 11/23/2019 COLORECTAL CANCER SCREENING 11/23/2029 HEPATITIS C SCREENING Completed 10/09/2019 Procedures Procedure Name Priority Date/Time Associated Diagnosis Comments SCANNED - COLONOSCOPY 11/23/2019 MAMMO SCREENING DIGITAL TOMOSYNTHESIS BILATERAL W CAD Routine 11/15/2019 9:03 AM EST Screening for breast cancer HEPATITIS C ANTIBODY Routine 10/09/2019 10:00 AM EST Encounter for hepatitis C screening test for low risk patient from Last 3 Months or Most Recently Relevant to Health Maintenance Results * SCANNED - COLONOSCOPY (11/23/2019) Alondra Leigh APRN CHART REVIEW TABS Final Resul t * Mammo Screening Digital Tomosynthesis Bilateral With CAD (11/15/2019 9:03 AM EST) Anatomical Region Laterality Modality Breast N/A Mammography 11/16/2019 11:0 2 AM EST Impressions 11/17/2019 8:52 AM EST No findings suspicious for malignancy. ACR BI-RADS CATEGORY: 1, NEGATIVE. RECOMMENDATION: Yearly mammogram, yearly clinical breast exam, and encourage self breast awareness. CAD was used. The standard false negative rate of mammography is between 10% and 25%. Complex patterns or increased breast density will markedly elevate the false negative rate of mammography. A letter, in lay terminology, with the results of this exam will be mailed to the patient. If there is a palpable area of concern, biopsy should be considered regardless of imaging findings. This report was finalized on 11/17/2019 8:[address] Mary Mccall MD. Narrative 11/17/2019 8:52 AM EST ROUTINE DIGITAL SCREENING MAMMOGRAM WITH TOMOSYNTHESIS: HISTORY: Routine screening. IMAGE COMPARISON: The patient's prior exams are over 19 years old and no longer available for comparison. TECHNIQUE: Low dose full field digital breast tomosynthesis imaging was performed with 2D and 3D acquisitions consisting of bilateral CC and MLO views. FINDINGS: There are scattered areas of fibroglandular density. There is no mass, worrisome microcalcifications, or architectural distortion to suggest development of malignancy. Alondra Leigh APRN IMG MAMMOGRAPHY ORDERABLES Final Result * Hepatitis C antibody (10/09/2019 10:00 AM EST) Hep C Virus Ab <0.1 0.0 - 0.9 s/co ratio [facility] Comment: Negative: < 0.8 Indeterminate: 0.8 - 0.9 Positive: > 0.9 The CDC recommends that a positive HCV antibody result be followed up with a HCV Nucleic Acid Amplification test (523039). Blood 10/09/2019 10:0 0 AM EST 10/09/2019 Narrative [facility] ([facility]) - 10/10/2019 7:08 AM EST Performed at: [facility] [id number] Patternmaker Metal Bench: Daniel Ryan PhD, Phone: [phone] Patient Fasting: Y Alondra J Leigh SURVEYOR HELPER LAB BLOOD ORDERABLES Final Resul t [facility] ([facility]) [address] [place] [address], [facility] [address] [place] [address], from Last 3 Months or Most Recently Relevant to Health Maintenance Insurance [facility] Care Teams Acute Care Certified Nursing Assistant Relationship Specialty Start Date End Date Alondra Leigh APRN [address] [place] [address] PCP - General Family Medicine 10/09/19
[2025-08-27 08:45] VITALS: PULSE 57; PULSE 60
[2025-08-27] MEDS: LEVALBUTEROL 1.25MG/3ML NEB 1.25 MG IH (08:45)
== END 2025-08-27 23:59 | disposition home or self-care (01) ==
PROVIDERS: PCP Nurse Practitioner Family; Visit Provider Internal Medicine Pulmonary Disease
DX: R94.2 Abnormal results of pulmonary function studies (principal); R06.09 Other forms of dyspnea; R06.02 Shortness of breath
CPT/HCPCS: 94010; 94618; 94640; J7614

== ENCOUNTER 2025-08-28 16:00 | Outpatient (CLI) | payer OTHER, SELFPAY ==
[2025-08-28 19:44] LABS: Hematocrit 44.5 % (37.0-47.0); Hemoglobin 13.9 g/dL (12.2-16.2); Immature Granulocytes % 0.5 %; Mean Corpuscular HGB Conc 31.2 g/dL (31.8-35.4); Mean Corpuscular Hemoglobin 27.1 pg (27.0-31.2); Mean Corpuscular Volume 86.9 fl (81-99); Nucleated Red Blood Cells % 0 %; Platelet Count 428 K/mm3 (142-424); Red Blood Count 5.12 M/mm3 (4.20-5.40); Red Cell Distribution Width-SD 50.1 fL; White Blood Count 11.3 K/mm3 (4.8-10.8)
[2025-08-28 20:11] LABS: Alanine Aminotransferase 16 U/L (12-78); Albumin Level 3.6 g/dl (3.5-5.0); Albumin/Globulin Ratio 0.9 (1.1-1.8); Alkaline Phosphatase 94 U/L (38-126); Anion Gap 14.6 mEq/L (5-15); Aspartate Amino Transferase 29 U/L (14-36); Bilirubin,Total 0.4 mg/dl (0.2-1.3); Blood Urea Nitrogen 22 mg/dl (7-17); Calcium 9.7 mg/dl (8.4-10.2); Carbon Dioxide 25 mmol/L (22.0-30.0); Chloride 98 mmol/L (98-107); Cholesterol 228 mg/dl (140-200); Creatinine,Serum 1.00 mg/dl (0.52-1.04); Estimated Glomerular Filt Rate 56 ml/min (>60); GFR (African American) 67 ML/MIN (>60); Globulin 4.2 g/dL (1.3-3.2); Glucose 81 mg/dl (74-100); HDL Cholesterol 90 mg/dl (40-60); Potassium 4.6 mmoL/L (3.5-5.1); Sodium 133 mmol/L (136-145); Total Protein,Serum 7.8 g/dl (6.3-8.2); Triglycerides 87 mg/dl (30-150)
[2025-08-28 20:43] LABS: Thyroid Stimulating Hormone 0.74 uIU/mL (0.465-4.68)
[2025-08-28 21:02] LABS: Hepatitis C Ab Qual. W/ RFX NEGATIVE (Negative)
--- OUTSIDE RECORDS SUMMARY | 2025-08-29 13:17 | XMS_ITS | Clinical Summary ---
Author Organization [facility] Address [address] [place] [address] Care Team Providers Care Mat Inspector Name Role Phone Alondra Leigh APRN Primary Care Provider [phone] Allergies Active Allergy Reactions Criticality Noted Date [...] with a HCV Nucleic Acid Amplification test ([id number]). Blood 10/09/2019 10:0 0 AM EST 10/09/2019 Narrative [facility] ([facility]) - 10/10/2019 7:08 AM EST Performed at: [facility] [id number] Account Consultant: Daniel Ryan PhD, Phone: [phone] Patient Fasting: Y Alondra J Leigh ARCHITECTURAL DRAFTER LAB BLOOD ORDERABLES Final Resul t [facility] ([facility]) [address] [place] [address], [facility] [address] [place] [address], from Last 3 Months or Most Recently Relevant to Health Maintenance Insurance [facility] Care Teams Mat Inspector Relationship Specialty Start Date End Date Alondra Leigh APRN [address] [place] [address] PCP - General Family Medicine 10/09/19
[2025-08-30 03:43] LABS: Hepatitis B Surface Antigen Negative (Negative)
== END 2025-08-28 23:59 | disposition home or self-care (01) ==
LOC: LAB.DROPOF 08-29 13:13
PROVIDERS: PCP Nurse Practitioner Family; Visit Provider Nurse Practitioner Family
DX: J44.89 Other specified chronic obstructive pulmonary disease (principal); E66.9 Obesity, unspecified; R55 Syncope and collapse; R42 Dizziness and giddiness; I10 Essential (primary) hypertension; Z11.59 Encounter for screening for other viral diseases
CPT/HCPCS: 80053; 80061; 84443; 85025; 86803; 87340; 87389

== ENCOUNTER 2025-09-11 10:21 | Outpatient (CLI) | payer OTHER, SELFPAY ==
--- OUTSIDE RECORDS SUMMARY | 2025-09-11 10:29 | XMS_ITS | Clinical Summary ---
Author Organization [facility] Address [address] [place] [address] Care Team Providers Care Chemical Sales Representative Name Role Phone Alondra Leigh APRN Primary Care Provider [phone] Allergies Active Allergy Reactions Criticality Noted Date [...] with a HCV Nucleic Acid Amplification test ([id number]). Blood 10/09/2019 10:0 0 AM EST 10/09/2019 Narrative [facility]) - 10/10/2019 7:08 AM EST Performed at: [facility] [id number] Senior Research Manager: Daniel Ryan PhD, Phone: [phone] Patient Fasting: Y Alondra J Leigh PILL MACHINE OPERATOR LAB BLOOD ORDERABLES Final Resul t [facility] ([facility]) [address] [place] [address], [facility] [address] [place] [address], from Last 3 Months or Most Recently Relevant to Health Maintenance Insurance [facility] Care Teams Chemical Sales Representative Relationship Specialty Start Date End Date Alondra Leigh APRN [address] [place] [address] PCP - General Family Medicine 10/09/19
== END 2025-09-11 23:59 | disposition home or self-care (01) ==
LOC: RT 10:22
PROVIDERS: PCP Nurse Practitioner Family; Visit Provider Physician Assistant
DX: I49.1 Atrial premature depolarization (principal); I49.3 Ventricular premature depolarization; R55 Syncope and collapse; R42 Dizziness and giddiness
CPT/HCPCS: 93270

== ENCOUNTER 2025-10-03 12:13 | Outpatient (CLI) | payer OTHER, SELFPAY ==
--- NOTE | 2025-10-03 | CA_ITS ---
APPROVED REPORT Exam: Pharmacologic Technologist: Ruby Nguyen Stress Nurse: Amairani Choi Ht: 5 ft 1 in Wt: 166 lbs BSA: 1.74 m2 HR: 52 bpm BP: 117/55 mmHg Rhythm: Sinus Rhythm Medical History Medical History: Smoking Allergies: Albuterol Cardiac Risk Factors: FHX of CAD, Smoking Stress Test Details Test: Lexiscan HR Resting HR: 52 bpm Max Heart Rate (APMHR): 155.514416 bpm Target HR (85% APMHR): 131.635285 bpm Recovery HR: 83 bpm BP Resting BP: 117.0/55.0 mmHg Max BP: 125.0/60.0 mmHg Recovery BP: 113.0/63.0 mmHg ECG Resting ECG: Sinus Rhythm Stress ECG Conclusion Lungs clear to ausciltate prior ro start of test 1 minute Vasodilation: BP dropped- reclined in chair 2 minute Vasodilation: reclined- dizzy/headache 3 miuntes Vasodilation: reclined in chair 4 minute Vasodilation: reclined in chair- Trendelenburg 1 minute Recovery: reclines in chair flat 3 minute Recovery: sitting up at 45 degree angle-still dizzy 7 minute Recovery: sitting up- still nauseas Sever nausea/headache- Aminophylline 50mg IVP per protocol Symptoms resolved prior to discharge Electronically signed by : Rita Sanchez MD 10/08/2025 13:08:12
--- OUTSIDE RECORDS SUMMARY | 2025-10-03 12:17 | XMS_ITS | Clinical Summary ---
Author Organization [facility] Address [address] [place] [address] Care Team Providers Care Hang Gliding Instructor Name Role Phone Alondra Leigh APRN Primary Care Provider Allergies Active Allergy Reactions Criticality Noted Date [...] with a HCV Nucleic Acid Amplification test ([id number]). Blood 10/09/2019 10:0 0 AM EST 10/09/2019 Narrative [facility] ([facility]) - 10/10/2019 7:08 AM EST Performed at: [facility] [id number] Customer Trainer: Daniel Ryan PhD, Phone: [phone] Patient Fasting: Y Alondra J Leigh SILVERER LAB BLOOD ORDERABLES Final Resul t [facility] ([facility]) [address] [place] [address], [facility] [address] [place] [address], from Last 3 Months or Most Recently Relevant to Health Maintenance Insurance [facility] Care Teams Hang Gliding Instructor Relationship Specialty Start Date End Date Alondra Leigh APRN [address] [place] [address] PCP - General Family Medicine 10/09/19
--- NOTE | 2025-10-03 12:30 | NM_ITS ---
APPROVED REPORT Exam: Nuclear Stress Test Indication: Chest pain, SOB, Family history Patient Location: Outpatient Stress Tech: Ruby Nguyen [place] Tech:VINNIE Miranda RT(R)(N) Ht: 5 ft 1 in Wt: 163 lbs Bra Size: 38C HR: 52 bpm BP: 117/55 mmHg BSA: 1.73 m2 TID: 1.14 BMI: 30.7 History: Chest pain, SOB, Family history Procedure: Patient received 0.4 mg of intravenous Lexiscan, resting heart rate 52 bpm, resting blood pressure 117/55 mmHg, with Lexiscan maximum heart rate achieved was 107 bpm which is % of the maximum predicted heart rate and blood pressure was 127/60 mmHg. With Lexiscan, patient denied any complaint of chest pain. Cardiac Stress and Resting SPECT Images: Cardiac Stress and Resting SPECT images were obtained using technetium 99m Myoview 32.9 mCi stress and 10.89 mCi at rest. Resting and stress imaging in supine and prone positions demonstrate no evidence of fixed or reversible perfusion defects. Gated imaging demonstrates normal global LV systolic function. LVEF is calculated at 59%. Conclusion: No evidence of fixed or reversible perfusion defects. Gated imaging demonstrates normal global LV systolic function. LVEF is calculated at 59%. Electronically signed by : Rita Sanchez MD 10/08/2025 13:04:31
[2025-10-03 13:50] VITALS: BP 117/55; PULSE 52; RESP 16
[2025-10-03] MEDS: AMINOPHYLLINE 250MG/10ML VIAL 125 MG IV (14:10)
[2025-10-03 14:32] VITALS: BMI 31.4
[2025-10-03] MEDS: ISOTOPE MYOVIEW (PER STUDY) 1 DOSE IV (15:15)
[2025-10-03] MEDS: SODIUM CHLORIDE 0.9% 10ML SYR (RAD ONLY) 10 ML IV ×2 (15:15)
--- NOTE | 2025-10-03 15:15 | CA_ITS ---
APPROVED REPORT EXAM: Comprehensive 2D, Doppler, and color-flow Echocardiogram Lathe Machinist: KLEVER Pratt, RVS Ht: 5 ft 1 in Wt: 166lbs BSA: 1.74 BP: 112/64 mmHg Rhythm: Bradycardia Indications: Syncope, Abn EKG, Latent TB, COPD, Dizziness 2D Dimensions Left Atrium 3.42 cm F: 2.7 - 3.8 LA Volume 44.20 mL LA Volume Index 25.743955 mL/m2 (M/F) 16-34 M-Mode Dimensions RVDd 2.65 cm (0.9-2.6) LA Diam 3.48 cm (1.9-4.0) LVDd 4.61 cm (3.5-5.7) LVDs 3.18 cm (3.5-5.7) IVSd 0.86 cm (0.6-1.1) PWd 0.82 cm (0.6-1.1) EF (Teich) 58.80% EPSs 0.25 cm FS 31.00% EDV (Teich) 97.80 mL ESV (Teich) 40.30 mL LV Diastology E Decel Time 179 (160-240 msec) E/A Ratio 1.52 MED A' 8.70 cm/s LAT A' 7.90 cm/s Aortic Valve CORI Index 1.25 cm2/m2 AoV Peak Brent. 143.0 (50-130 cm/s) AI PHT 436.00 ms AO Peak GR. 8.20 mmHg AO Mean GR. 4.50 (<5 mmHg) AO VTI 32.0 (18-25 cm) CORI (VTI) 2.24 (2.5-4.5 cm2) Mitral Valve MV A Velocity 67.0 (40-130 cm/s) E/A Ratio 1.52 Pulmonary Valve PV Peak Velocity 79.0 (50-150 cm/s) Tricuspid Valve TR P. Velocity 220.00 cm/s RAP Estimate 10.00 mmHg RVSP 29.30 mmHg Left Ventricle The left ventricle is normal size. Left ventricular systolic function is normal. The left ventricular ejection fraction is within the normal range. There is normal left ventricular wall thickness. There is normal LV segmental wall motion. The left ventricular diastolic function is normal. LVEF is 55%. Right Ventricle The right ventricle is normal size. The right ventricular systolic function is normal. Atria The left atrium size is normal. The right atrium size is normal. There is no color Doppler evidence of interatrial shunt. Aortic Valve The aortic valve is mildly thickened. There is no hemodynamically significant aortic valvular stenosis. Mild aortic regurgitation is present. Mitral Valve The mitral valve is normal in structure. No evidence of mitral valve stenosis. Mild mitral regurgitation is present. Tricuspid Valve The tricuspid valve leaflets are thin and pliable. Trace tricuspid regurgitation. There is insufficient TR jet to estimate RVSP. Pulmonic Valve The pulmonary valve is grossly normal in structure. Trace pulmonic valve regurgitation is present. Great Vessels The aortic root is normal in size. IVC is normal in size and collapses >50% with inspiration. Pericardium There is no pericardial effusion. Other Information Study Quality: Fair Conclusion Normal biventricular systolic function. Mild MR, mild TR. Electronically signed by : Rita Sanchez MD 10/09/2025 00:17:28
== END 2025-10-03 23:59 | disposition home or self-care (01) ==
LOC: RAD 12:14
PROVIDERS: PCP Nurse Practitioner Family; Visit Provider Physician Assistant
DX: I08.1 Rheumatic disorders of both mitral and tricuspid valves (principal); J44.9 Chronic obstructive pulmonary disease, unspecified; R94.31 Abnormal electrocardiogram [ECG] [EKG]; R55 Syncope and collapse; Z22.7 Latent tuberculosis
CPT/HCPCS: 78452; 93017; 93018; 93306; A9502; J0280; J2785